=== PATIENT | female | born 1990 | race African-American/Black ===

== ENCOUNTER 2017-03-01 17:28 | Inpatient (IN) ==
[2017-03-01 19:38] LABS: Apearance,Urine Slightly Hazy (Clear); Bilirubin,Urine Negative (Negative); Blood, Urine Negative (Negative); Glucose,Urine (UA) Negative (Negative); Ketones,Urine 80 mg/dL (Negative); Mucus,Urine Moderate /LPF (Occasional); Nitrite,Urine Negative (Negative); Protein,Urine 30 MG/DL; RBC,Urine 1 /HPF (0-4); Squamous Epithelial Cell,Urine Occasional /HPF (0-10); Urine Color Yellow (Yellow); Urine Specific Gravity 1.028 (1.001-1.035); WBC,Urine 2 /HPF (0-6)
[2017-03-01] MEDS ORDERED: ONDANSETRON 4 MG/2 ML VIAL IV PRN ×2 (20:04→21:25)
[2017-03-01] MEDS ORDERED: PROMETHAZINE 25 MG/1 ML VIAL IM ONE (20:06)
[2017-03-01] MEDS ORDERED: ONDANSETRON 4 MG/2 ML VIAL IV ONE (20:06)
[2017-03-01] MEDS ORDERED: hydrOXYzine HCL 25 MG/1 ML VIAL IM PRN (20:06)
[2017-03-01] MEDS ORDERED: diphenhydrAMINE 50 MG/1 ML VIAL IV PRN (20:06)
[2017-03-01] MEDS ORDERED: LACTATED RINGERS 1,000 ML IV ONE (20:06)
[2017-03-01] MEDS ORDERED: FAMOTIDINE 20 MG/2 ML VIAL IV ONE (20:06)
[2017-03-01] MEDS ORDERED: ePHEDrine 50 MG/ML AMP IV PRN (20:06)
[2017-03-01] MEDS ORDERED: CITRIC ACID/SODIUM CITRATE 30 ML UDCUP PO ONE (20:06)
[2017-03-01] MEDS ORDERED: OXYTOCIN/LR 20 UNIT/1,000 ML BAG IV ONE ×2 (20:08→21:25)
[2017-03-01] MEDS ORDERED: ceFAZolin 2,000 MG in PREMIX 1 EACH IV ONE (20:08)
[2017-03-01] MEDS ORDERED: fentaNYL 2 MCG/ROPIV 0.2% EPID 150 ML EPIDURAL SCH (20:30)
[2017-03-01] MEDS ORDERED: LACTATED RINGERS 1,000 ML IV SCH ×3 (20:30→21:30)
[2017-03-01 20:32] LABS: Basophils % 0.3 % (0.0-0.8); Eosinophils # 0.1 10*3/uL (0.0-0.87); Eosinophils % 0.7 % (0.00-10.9); Hematocrit 32.5 VOL% (35.7-47.0); Hemoglobin 11.2 GM/DL (12.0-16.0); Immature Granulocytes % 1.1 %; Immature Granulocytes Absolute 0.08 #; Lymphocytes # 1.5 10*3/uL (1.4-4.0); Lymphocytes % 19.4 % (21.3-54.2); Mean Corpuscular HGB Conc 34.5 GM/DL (32-36); Mean Corpuscular Hemoglobin 30 PG (27-34); Mean Corpuscular Volume 85.8 FL (87-102); Mean Platelet Volume 10.5 FL (9.6-12.0); Monocytes # 0.6 10*3/uL (0.11-0.8); Monocytes % 8.5 % (1.7-12.7); Neutrophils # 5.3 10*3/uL (1.4-7.4); Platelet Count 267 T/CUMM (130-400); Red Blood Count 3.79 MC/CUMM (3.8-5.5); Red Cell Distribution Width 15.4 % (9.3-17.3); White Blood Count 7.5 T/CUMM (4-12)
[2017-03-01 20:53] LABS: Alanine Aminotransferase 13 U/L (13-56); Albumin 2.8 G/DL (3.4-5.0); Alkaline Phosphatase 213 U/L (45-117); Aspartate Amino Transferase 12 U/L (0-37); Bilirubin,Total < 0.39 MG/DL (0.2-1.0); Blood Urea Nitrogen 7 MG/DL (7-18); Calcium 8.7 MG/DL (8.5-10.1); Glucose 68 MG/DL (74-106); Osmolality,Calculated 270.7 MOS/KG (273-304); Potassium 3.6 MMOL/L (3.5-5.1); Sodium 138 MMOL/L (136-145); Total Protein 6.1 G/DL (6.4-8.3)
[2017-03-01] MEDS ORDERED: ACETAMINOPHEN 325 MG TABLET PO PRN (21:25)
[2017-03-01] MEDS ORDERED: RHO(D) IMMUNE GLOBULIN 300 MCG SYRINGE IM ONE (21:25)
[2017-03-01] MEDS ORDERED: ceFAZolin 1,000 MG in SYRINGE 1 EACH IV SCH (21:30)
[2017-03-01 21:58] LABS: Cord Arterial Blood HCO3 19.3 MMOL/L
[2017-03-01 22:02] LABS: Cord Venous Blood HCO3 21.6 MMOL/L; Cord Venous Blood PCO2 41.6 MMHG; Cord Venous Blood PO2 29.8
[2017-03-01] MEDS ORDERED: TISSUE ADHESIVE 1 EACH APPLICATOR TOP ONE (22:13)
[2017-03-01] MEDS ORDERED: MORPHINE 10 MG/10 ML VIAL ONE (22:25)
[2017-03-02 07:13] LABS: Basophils % 0.1 % (0.0-0.8); Eosinophils % 0.4 % (0.00-10.9); Hematocrit 30.3 VOL% (35.7-47.0); Hemoglobin 10.3 GM/DL (12.0-16.0); Immature Granulocytes % 0.8 %; Immature Granulocytes Absolute 0.06 #; Lymphocytes # 1.3 10*3/uL (1.4-4.0); Lymphocytes % 16.1 % (21.3-54.2); Mean Corpuscular Hemoglobin 29 PG (27-34); Mean Corpuscular Volume 85.8 FL (87-102); Monocytes # 0.5 10*3/uL (0.11-0.8); Monocytes % 6.7 % (1.7-12.7); Neutrophils # 5.9 10*3/uL (1.4-7.4); Neutrophils % 75.9 % (38.7-73.9); Platelet Count 265 T/CUMM (130-400); Red Blood Count 3.53 MC/CUMM (3.8-5.5); Red Cell Distribution Width 15.4 % (9.3-17.3); White Blood Count 7.8 T/CUMM (4-12)
[2017-03-02] MEDS: DOCUSATE SODIUM 100 MG CAPSULE PO SCH ×2 (09:03→20:27)
[2017-03-02] MEDS: MAGNESIUM HYDROXIDE SUSP 30 ML UDCUP PO PRN (09:03)
[2017-03-02] MEDS: MULTIVITAMIN (PRENATAL) TABLET PO SCH (09:03)
[2017-03-02] MEDS: IBUPROFEN 800 MG TABLET PO PRN ×2 (10:13→19:23)
[2017-03-02 13:17] LABS: HIV Antigen/Antibody Result Nonreactive (Nonreactive); Hepatitis B Surface Ag Quant 0.84 Index; Hepatitis B Surface Ag Result Negative (Negative)
[2017-03-02] MEDS ORDERED: ceFAZolin 1,000 MG in SYRINGE 1 EACH IV SCH (13:30)
[2017-03-03] MEDS: DOCUSATE SODIUM 100 MG CAPSULE PO SCH ×2 (09:30→21:16)
[2017-03-03] MEDS: SIMETHICONE CHEW 80 MG TABLET PO PRN ×2 (09:30→21:16)
[2017-03-03] MEDS: MAGNESIUM HYDROXIDE SUSP 30 ML UDCUP PO PRN ×2 (09:30→21:16)
[2017-03-03] MEDS: MULTIVITAMIN (PRENATAL) TABLET PO SCH (09:30)
[2017-03-03] MEDS: METOCLOPRAMIDE 10 MG TABLET PO SCH ×2 (14:09→21:16)
[2017-03-03] MEDS: BISACODYL 10 MG SUPP RECTAL PRN (14:09)
[2017-03-03] MEDS: IBUPROFEN 800 MG TABLET PO PRN (18:01)
[2017-03-04] MEDS: BISACODYL 10 MG SUPP RECTAL PRN (00:06)
[2017-03-04] MEDS: METOCLOPRAMIDE 10 MG TABLET PO SCH (05:39)
[2017-03-04] MEDS: IBUPROFEN 800 MG TABLET PO PRN (06:33)
[2017-03-04] MEDS: MAGNESIUM HYDROXIDE SUSP 30 ML UDCUP PO PRN (09:34)
[2017-03-04] MEDS: SIMETHICONE CHEW 80 MG TABLET PO PRN (09:34)
[2017-03-04] MEDS: DOCUSATE SODIUM 100 MG CAPSULE PO SCH (09:34)
[2017-03-04] MEDS: MULTIVITAMIN (PRENATAL) TABLET PO SCH (09:34)
[2017-03-04 11:42] VITALS: BP 123/68
[2017-03-04] MEDS ORDERED: DIPH/TET/ACEL PERT BOOSTER VACCINE 0.5 ML VIAL IM ONE (12:30)
== END 2017-03-04 14:00 | disposition home or self-care (01) | DRG 540 ==
LOC: N.LDOUT 17:28 → N.LD 17:32 → N.OB 03-02 00:45
PROVIDERS: ADMIT Obstetrics & Gynecology; ATTEND Obstetrics & Gynecology
PROC: LDCSECT (ICD-10-PCS; 2017-03-01 21:00)

== ENCOUNTER 2018-12-12 10:24 | Inpatient (IN) ==
[2018-12-12] MEDS ORDERED: CITRIC ACID/SODIUM CITRATE 30 ML UDCUP PO ONE (10:47)
[2018-12-12] MEDS ORDERED: FAMOTIDINE 20 MG/2 ML VIAL IV ONE (10:47)
[2018-12-12] MEDS ORDERED: ceFAZolin 2,000 MG in PREMIX 1 EACH IV ONE (10:47)
[2018-12-12] MEDS ORDERED: OXYTOCIN/LR 20 UNIT/1,000 ML BAG IV ONE (10:48)
[2018-12-12] MEDS: LACTATED RINGERS 1,000 ML IV SCH ×2 (11:36→21:00)
[2018-12-12 11:59] LABS: Basophils % 0.4 % (0.0-0.8); Eosinophils % 0.7 % (0.00-10.9); Hematocrit 33.9 VOL% (35.7-47.0); Hemoglobin 10.9 GM/DL (12.0-16.0); Immature Granulocytes % 1.4 %; Immature Granulocytes Absolute 0.08 #; Lymphocytes % 18.1 % (21.3-54.2); Mean Corpuscular HGB Conc 32.2 GM/DL (32-36); Mean Corpuscular Volume 88.1 FL (87-102); Mean Platelet Volume 10.9 FL (9.6-12.0); Monocytes % 9.7 % (1.7-12.7); Neutrophils % 69.7 % (38.7-73.9); Platelet Count 279 T/CUMM (130-400); Red Blood Count 3.85 MC/CUMM (3.8-5.5); Red Cell Distribution Width 18.5 % (9.3-17.3); White Blood Count 5.7 T/CUMM (4-12)
[2018-12-12] MEDS ORDERED: MORPHINE 10 MG/10 ML VIAL ONE (12:12)
[2018-12-12] MEDS ORDERED: PHENYLEPHRINE 1 MG/10 ML SYRINGE IV ONE (12:12)
[2018-12-12] MEDS ORDERED: fentaNYL 100 MCG/2 ML VIAL ONE (12:12)
[2018-12-12] MEDS ORDERED: DEXAMETHASONE 4 MG/1 ML VIAL ONE (12:13)
[2018-12-12] MEDS ORDERED: KETOROLAC 60 MG/2 ML VIAL IM ONE (12:13)
[2018-12-12] MEDS ORDERED: BUPIVACAINE SPINAL 0.75% 2 ML AMP SPINAL ONE (12:13)
[2018-12-12] MEDS ORDERED: BUPIVACAINE 0.5% 50 ML VIAL ONE (12:13)
[2018-12-12] MEDS ORDERED: ONDANSETRON 4 MG/2 ML VIAL ONE (12:13)
[2018-12-12] MEDS ORDERED: EPINEPHrine 1 MG/ML VIAL ONE (12:13)
[2018-12-12 13:19] LABS: Cord Arterial Blood HCO3 19.6 MMOL/L
[2018-12-12 13:22] LABS: Cord Venous Blood HCO3 20.8 MMOL/L; Cord Venous Blood PCO2 47.1 MMHG; Cord Venous Blood PO2 25.9
[2018-12-12] MEDS ORDERED: TISSUE ADHESIVE 1 EACH APPLICATOR TOP ONE (13:43)
[2018-12-12] MEDS ORDERED: ACETAMINOPHEN 1,000 MG/100 ML VIAL IV ONE (13:45)
[2018-12-12] MEDS ORDERED: HYDROmorphone 2 MG/1 ML VIAL IV PRN (14:23)
[2018-12-12] MEDS ORDERED: hydrOXYzine HCL 25 MG/1 ML VIAL IM PRN (14:23)
[2018-12-12] MEDS ORDERED: diphenhydrAMINE 50 MG/1 ML VIAL IV PRN (14:23)
[2018-12-12] MEDS ORDERED: ONDANSETRON 4 MG/2 ML VIAL IV PRN (14:23)
[2018-12-12 15:32] LABS: Apearance,Urine Clear (Clear); Glucose,Urine (UA) Negative (Negative); Protein,Urine Negative; Urine Color Light Yellow (Yellow)
[2018-12-12 15:33] LABS: Bilirubin,Urine Negative (Negative); Blood, Urine Negative (Negative); Ketones,Urine 100 mg/dL (Negative); Nitrite,Urine Negative (Negative); Urine Urobilinogen 0.2 EU/DL (0.2-1.0)
[2018-12-12 15:34] LABS: RBC,Urine Occasional /HPF (0-4); WBC,Urine Negative /HPF (0-6)
[2018-12-12 15:35] LABS: Squamous Epithelial Cell,Urine 1+ /HPF (0-10); Transitional Epi Cells,Urine None Seen /HPF (<1)
[2018-12-12] MEDS ORDERED: MAGNESIUM HYDROXIDE SUSP 30 ML UDCUP PO PRN (19:32)
[2018-12-12] MEDS ORDERED: ACETAMINOPHEN INJ 1,000 MG in PREMIX 1 EACH IV SCH (20:00)
[2018-12-12] MEDS: ceFAZolin 1,000 MG in SYRINGE 1 EACH IV SCH (20:52)
[2018-12-12] MEDS: ACETAMINOPHEN 500 MG TABLET PO SCH (20:52)
[2018-12-13] MEDS: diphenhydrAMINE CAP 25 MG CAPSULE PO PRN ×2 (04:00→15:09)
[2018-12-13] MEDS ORDERED: diphenhydrAMINE CAP 25 MG CAPSULE ONE (04:00)
[2018-12-13] MEDS: ACETAMINOPHEN 500 MG TABLET PO SCH ×3 (04:00→14:04)
[2018-12-13] MEDS: ceFAZolin 1,000 MG in SYRINGE 1 EACH IV SCH (04:00)
[2018-12-13 06:01] LABS: Basophils % 0.3 % (0.0-0.8); Eosinophils % 0.2 % (0.00-10.9); Hematocrit 29.8 VOL% (35.7-47.0); Hemoglobin 9.8 GM/DL (12.0-16.0); Lymphocytes # 1.1 10*3/uL (1.4-4.0); Lymphocytes % 11.1 % (21.3-54.2); Mean Corpuscular HGB Conc 32.9 GM/DL (32-36); Mean Corpuscular Volume 89.2 FL (87-102); Mean Platelet Volume 11.7 FL (9.6-12.0); Monocytes % 8.8 % (1.7-12.7); Neutrophils % 78.6 % (38.7-73.9); Platelet Count 251 T/CUMM (130-400); Red Blood Count 3.34 MC/CUMM (3.8-5.5); Red Cell Distribution Width 18.4 % (9.3-17.3); White Blood Count 10.2 T/CUMM (4-12)
[2018-12-13] MEDS: IBUPROFEN 800 MG TABLET PO PRN ×2 (08:54→18:38)
[2018-12-13] MEDS: DOCUSATE SODIUM 100 MG CAPSULE PO SCH ×2 (08:55→20:56)
[2018-12-13] MEDS: POLYETHYLENE GLYCOL POWDER 17 GM PACK PO SCH (14:03)
[2018-12-14] MEDS: DOCUSATE SODIUM 100 MG CAPSULE PO SCH ×2 (09:17→20:00)
[2018-12-14] MEDS: POLYETHYLENE GLYCOL POWDER 17 GM PACK PO SCH (10:45)
[2018-12-14] MEDS: IBUPROFEN 800 MG TABLET PO PRN ×2 (13:08→20:01)
[2018-12-14] MEDS ORDERED: MAGNESIUM CITRATE 300 ML BOTTLE PO ONE (16:45)
[2018-12-14] MEDS ORDERED: BISACODYL 10 MG SUPP RECTAL PRN (21:35)
[2018-12-15] MEDS: IBUPROFEN 800 MG TABLET PO PRN (03:42)
[2018-12-15 07:16] VITALS: BP 96/56
[2018-12-15] MEDS: POLYETHYLENE GLYCOL POWDER 17 GM PACK PO SCH (08:48)
[2018-12-15] MEDS: DOCUSATE SODIUM 100 MG CAPSULE PO SCH (08:48)
== END 2018-12-15 12:10 | disposition home or self-care (01) | DRG 785 ==
LOC: N.LDOUT 10:24 → N.LD 10:26 → N.OB 17:24
PROVIDERS: ADMIT Obstetrics & Gynecology; ATTEND Obstetrics & Gynecology